=== PATIENT | male | born 1955 | race Caucasian/White ===

== ENCOUNTER 2018-08-14 18:16 | Emergency (ER) | payer BC ==
[~2018-08-14] VITALS: Ht 182.9 cm; Wt 167.0 kg
[2018-08-14] MEDS ORDERED: ZESTORETIC 20-1 EAC3 PO (18:21)
[2018-08-14] MEDS ORDERED: LIPITOR40 MG PO (18:21)
[2018-08-14] MEDS ORDERED: MAGNESIUM CITR100 GM PO (18:22)
[2018-08-14] MEDS ORDERED: NEXIUM40 MG PO (18:22)
[2018-08-14] MEDS ORDERED: VIAGRA100 MG PO (18:22)
[2018-08-14] MEDS ORDERED: TRULANCE3 MG PO (18:23)
[2018-08-14] MEDS ORDERED: AMITIZA 24 MCG24 MC1 PO (18:23)
[2018-08-14] MEDS ORDERED: SILDENAFIL CIT100 MG PO (18:23)
[2018-08-14] MEDS ORDERED: ZENPEP DR 10,01 EACH PO (18:24)
[2018-08-14] MEDS ORDERED: FLAGYL500 M1 PO (18:24)
[2018-08-14] MEDS ORDERED: BACTRIM DS TAB1 EACH PO (18:25)
[2018-08-14] MEDS ORDERED: AMOXICILLIN 50500 MG PO (18:25)
[2018-08-14] MEDS ORDERED: LINZESS290 MCG PO (18:25)
[2018-08-14] MEDS ORDERED: NORCO 5-325 TA1 EAC1 PO (18:26)
[2018-08-14] MEDS ORDERED: WART REMOVER7 GM TOP (18:27)
[2018-08-14 19:04] LABS: HEMATOCRIT 43.1 % (42.0-52.0); HEMOGLOBIN 15.4 gm/dL (14.0-18.0); MCH 33.5 pg (26.0-34.0); MCHC 35.7 g/dL (28.0-37.0); MCV 93.6 fL (80.0-100.0); MPV 6.4 fl. (7.2-11.1); NUCLEATED RBCS 0 /100WBC; PLATELET COUNT* 156 thou/uL (150-400); RBC 4.61 mil/uL (4.50-6.00); RDW-CV 13.5 % (10.5-14.5); WBC 6.9 thou/uL (4.0-11.0)
[2018-08-14 19:11] LABS: ANION GAP 11 mmol/L (7-16); BUN 14 mg/dL (7-18); CALCIUM 8.9 mg/dL (8.5-10.1); CHLORIDE 85 mmol/L (98-107); CO2 27 mmol/L (21-32); CREATININE 1.3 mg/dL (0.6-1.3); GLUCOSE 133 mg/dL (70-99); POTASSIUM 3.7 mmol/L (3.5-5.1); SODIUM 123 mmol/L (136-145)
[2018-08-14 19:14] LABS: APTT 25.8 Seconds (25.0-31.3); PROTIME 10.7 Seconds (9.20-11.50)
[2018-08-14 19:20] LABS: ACETAMINOPHEN < 2 ug/mL (10-30); ALCOHOL < 10 mg/dL (<10); SALICYLATE < 2.8 mg/dL (2.8-20.0)
[2018-08-14 19:21] LABS: ALBUMIN 4.1 g/dL (3.4-5.0); ALKALINE PHOSPHATASE 88 U/L (46-116); LIPASE 199 U/L (73-393); SGOT 113 U/L (15-37); SGPT 188 U/L (30-65); TOTAL BILIRUBIN 2.9 mg/dL (<0.1-1.0); TOTAL PROTEIN 7.5 g/dL (6.4-8.2); TROPONIN-I LEVEL <0.06 ng/mL (<0.06)
[2018-08-14 19:28] LABS: ABSOLUTE LYMPHOCYTES 0.6 thou/uL (0.8-5.3); ABSOLUTE MONOCYTES 0.4 thou/uL (0.0-1.2); ABSOLUTE NEUTROPHILS 5.9 thou/uL (1.6-8.1); PLATELET ESTIMATE ADEQUATE
[2018-08-14 20:13] VITALS: BP 162/81
--- NOTE | 2018-08-17 14:29 | EKG ---
[place] [address] ELECTROCARDIOGRAM REPORT Name: RADHA SPIVEY Room: [facility]#: [id number] Admission: 08/14/18 Attend Phys: Discharge: 08/14/18 Date of : 57 Report #: [id number] THIS REPORT FOR: //name// [facility] ED Test Date: 2018-08-14 Test Time: 18:57:36 Pat Name: RADHA SPIVEY Department: Room: Gender: M [employer] Counter Clerk: CARA : 1955 Requested By: Nikolay Page Order Number: [id number] MD: Joon Melendez Measurements Intervals [place] Rate: 73 P: 36 CA: 189 QRS: -24 QRSD: 129 T: 33 QT: 437 QTc: 482 Interpretive Statements Sinus rhythm Atrial premature complexes in couplets Nonspecific intraventricular conduction delay No previous ECG available for comparison Electronically Signed On 08-17-2018 14:29:31 CDT by Joon Melendez [email or web address] <ELECTRONICALLY SIGNED> By: Joon Melendez MD, [facility] 08/17/18 1429 1857 56 Joon Melendez MD, FACC /EPI
== END 2018-08-14 20:15 | disposition home or self-care (01) ==
LOC: M.ERS 18:16
PROVIDERS: Family Medicine
DX: R55 Syncope and collapse (principal); R11.2 Nausea with vomiting, unspecified; Z88.1 Allergy status to other antibiotic agents